=== PATIENT | male | born 1995 | race Caucasian/White ===

== ENCOUNTER 2018-04-04 23:15 | Emergency (ER) | payer BC ==
[~2018-04-04] VITALS: Ht 170.1 cm; Wt 49.9 kg
[~2018-04-04 23:15] MED LIST: MOTRIN100 MG/5 M PO
[2018-04-05] MEDS ORDERED: NAPROSYN500 MG PO (00:26)
== END 2018-04-05 01:49 | disposition home or self-care (01) ==
LOC: ED 23:15
DX: M76.62 Achilles tendinitis, left leg (principal); R63.1 Polydipsia; G40.909 Epilepsy, unspecified, not intractable, without status epilepticus

== ENCOUNTER → 2018-09-03 | Outpatient (CLI) | payer BC ==
[~2018-09-03] MED LIST changes: +AVPAK EXTENDED100 M1 PO; +NAPROSYN500 MG PO
== END | disposition home or self-care (01) ==
LOC: CARD 11:56
DX: R40.20 Unspecified coma (principal)

== ENCOUNTER 2020-01-12 22:54 | Emergency (ER) | payer BC ==
[~2020-01-12] VITALS: Ht 167.6 cm; Wt 52.2 kg
[2020-01-12 23:59] LABS: BASO % 0.6 % (0.0-1.0); EOS # 0.1 10*3/uL (0.0-0.4); EOS % 2.1 % (1.0-4.0); HEMATOCRIT 40.6 % (42.0-52.0); LYMPH # 1.6 10*3/uL (1.3-4.4); LYMPH % 32.7 % (27.0-41.0); MEAN CELL VOLUME 86.4 fl (80.0-94.0); MEAN CORPUSCULAR HGB 29.1 pg (27.0-31.0); MEAN CORPUSCULAR HGB CONC 33.7 g/dl (33.0-37.0); MEAN PLATELET VOLUME 11.2 fl (9.6-12.3); MONO # 0.4 10*3/uL (0.1-1.0); NEUT # 2.7 10*3/uL (2.3-7.9); NEUT % 56.6 % (47.0-73.0); PLATELET COUNT AUTOMATED 190 10*3/uL (130-400); RED CELL DISTRI WIDTH 12.6 % (0-14.5); WHITE BLOOD COUNT 4.8 10*3/uL (4.8-10.8)
[2020-01-13 00:17] LABS: ALBUMIN 4.3 gm/dl (3.1-4.5); ALKALINE PHOSPHATASE 47 U/L (45-117); BUN 13 mg/dl (7-24); CHLORIDE 106 mmol/L (98-107); CREATININE 0.89 mg/dL (0.70-1.30); SGOT/AST 12 IU/L (3-35); SGPT/ALT 12 U/L (12-78); SODIUM 142 mmol/L (136-145); TOTAL PROTEIN 7.8 gm/dL (6.4-8.2)
== END 2020-01-13 01:04 | disposition home or self-care (01) ==
LOC: ED 22:54
PROVIDERS: Physician Assistant
DX: R56.9 Unspecified convulsions (principal)